=== PATIENT | female | born 1980 | race Caucasian/White ===

== ENCOUNTER 2023-09-09 01:33 | Emergency (ER) | payer OTHER ==
[~2023-09-09] VITALS: Ht 167.6 cm; Wt 90.7 kg
[2023-09-09 01:55] VITALS: BP 173/90; PULSE 85; RESP 18; TEMP 98.8; O2SAT 99
[2023-09-09] MEDS ORDERED: BENZ-300 PO (07:36)
[2023-09-09] MEDS ORDERED: BENZ200C4 PO (07:36)
[2023-09-09] MEDS ORDERED: AZIT250T4 PO (07:36)
[2023-09-09 07:40] VITALS: BP 133/74; PULSE 64; RESP 16; TEMP 98; O2SAT 99
== END 2023-09-09 07:40 | disposition home or self-care (01) ==
LOC: MED 01:33
DX: J20.9 Acute bronchitis, unspecified (principal); Z79.899 Other long term (current) drug therapy
CPT/HCPCS: 70360; 71046; 99284